=== PATIENT | female | born 1995 | race Caucasian/White ===

== ENCOUNTER 2020-05-31 13:37 | Inpatient (IN) ==
[~2020-05-31 13:37] MED LIST: *HR* FentaNYL (PF) 100 MCG/2 ML VIAL IVP PRN; Famotidine 20 MG/2 ML VIAL IVP PRN; Lidocaine 1% 20 ML MDV INFILT PRN; Metoclopramide 10 MG/2 ML VIAL IVP PRN; Naloxone 0.4 MG/ML INJ IVP PRN; Ondansetron 4 MG/2 ML VIAL IVP PRN
[2020-05-31] MEDS ORDERED: Ringers Solution, Lactated 1,000 ML IVC SCH (13:45)
[2020-05-31 14:06] LABS: Basophils % 0.2 %; Eosinophils # 0.1 K/mcL (0.0-0.6); Eosinophils % 0.5 %; Hematocrit 42.6 % (35.3-44.9); Hemoglobin 13.5 g/dL (11.5-15.4); Immature Granulocytes % 0.5 % (0-4); Lymphocytes # 1.6 K/mcL (0.6-4.6); Lymphocytes % 15.3 %; Mean Corpuscular HGB Conc 31.7 g/dL (31.6-35.5); Mean Corpuscular Hemoglobin 27.8 pg (28.0-33.3); Mean Corpuscular Volume 87.7 fL (83.0-100.0); Mean Platelet Volume 11.5 fL (9.4-12.4); Monocytes # 0.7 K/mcL (0.0-1.3); Monocytes % 6.6 %; Platelet Count 163 K/mcL (140-400); Red Blood Count 4.86 M/mcL (3.82-4.97); Red Cell Distribution Width 14.4 % (11.5-14.5); Segmented Neutrophils % 76.9 %; White Blood Count 10.3 K/mcL (4.3-11.1)
[2020-05-31 14:12] LABS: Amphetamine Screen,Urine Negative ng/mL (Cutoff=1000); Barbiturate Screen,Urine Negative ng/mL (Cutoff=200); Benzodiazepines Screen,Urine Negative ng/mL (Cutoff=200); Cannabinoid Screen,Urine Negative ng/mL (Cutoff = 50); Cocaine Screen,Urine Negative ng/mL (Cutoff= 300); Opiate Screen,Urine Negative ng/mL (Cutoff=300); Phencyclidine Screen,Urine Negative ng/mL (Cutoff=25)
[2020-05-31] MEDS ORDERED: Oxytocin 20 units/ LR 1000 mL 20 UNIT/1,000 ML BAG IVC SCH (14:15)
[2020-05-31] MEDS ORDERED: miSOPROStoL 25 MCG TABLET PO PRN (17:19)
[2020-05-31] MEDS ORDERED: EPHEDrine 50 MG/ML VIAL IVP PRN (20:39)
[2020-05-31] MEDS ORDERED: Bupivacaine-MPF 0.25% 10 ML VIAL EP ONE (20:39)
[2020-05-31] MEDS ORDERED: *HR* FentaNYL (PF) 100 MCG/2 ML VIAL EP ONE (20:39)
[2020-05-31] MEDS ORDERED: Epidural Premix (fent/bupiv) 110 ML EP SCH (20:45)
[2020-05-31] MEDS ORDERED: Epidural Premix (fent/bupiv) 110 ML EP ONE (20:46)
[2020-06-01] MEDS ORDERED: Acetaminophen 325 MG TABLET PO ONE (03:57)
[2020-06-01] MEDS ORDERED: Ibuprofen 600 MG TABLET PO PRN (06:30)
[2020-06-01] MEDS ORDERED: Acetaminophen 325 MG TABLET PO PRN (06:36)
[2020-06-01] MEDS ORDERED: Measles/Mumps/Rubella Vacc 0.5 ML VIAL SQ PRN (06:36)
[2020-06-01] MEDS ORDERED: Rho Immune Globulin 1,500 UNIT SYRINGE IM PRN (06:36)
[2020-06-01] MEDS ORDERED: Oxytocin 20 units/ LR 1000 mL 20 UNIT/1,000 ML BAG IVC ONE (06:37)
[2020-06-01] MEDS ORDERED: Oxytocin 20 units/ LR 1000 mL 20 UNIT/1,000 ML BAG IVC SCH (06:45)
[2020-06-01] MEDS: Ibuprofen 600 MG TABLET PO PRN ×2 (07:22→17:46)
[2020-06-01] MEDS: Prenatal Vit/FA 1 EACH TABLET PO SCH (08:21)
[2020-06-01] MEDS ORDERED: Benzocaine/Menthol 56 GM AEROSOL SPRAY TP PRN (19:43)
[2020-06-02] MEDS: Ibuprofen 600 MG TABLET PO PRN ×2 (01:43→08:20)
[2020-06-02 07:59] VITALS: BP 117/68
[2020-06-02] MEDS: Prenatal Vit/FA 1 EACH TABLET PO SCH (08:20)
== END 2020-06-02 11:46 | disposition home or self-care (01) | DRG 807 ==
LOC: 1NENULAB → 1NENUOBS 06-01 08:28 → UNDODISIN 06-01 14:10
PROVIDERS: ADMIT Student in an Organized Health Care Education/Training Program; ATTEND Student in an Organized Health Care Education/Training Program

== ENCOUNTER → 2021-04-18 00:12 | Observation (INO) | END | disposition home or self-care (01) | LOC: 1NENULAB | PROVIDERS: ADMIT Student in an Organized Health Care Education/Training Program; ATTEND Student in an Organized Health Care Education/Training Program ==

== ENCOUNTER → 2021-04-25 11:25 | Observation (INO) | END | disposition home or self-care (01) | LOC: 1NENULAB | PROVIDERS: ADMIT Obstetrics & Gynecology; ATTEND Obstetrics & Gynecology ==

== ENCOUNTER 2021-04-30 07:49 | Inpatient (IN) ==
[2021-04-30] MEDS ORDERED: Metoclopramide 10 MG/2 ML VIAL IVP PRN ×2 (08:13→14:13)
[2021-04-30] MEDS ORDERED: Azithromycin 500 MG in 0.9 % Sodium Chloride 250 ML IVPB PRN (08:13)
[2021-04-30] MEDS ORDERED: Famotidine 20 MG/2 ML VIAL IVP PRN (08:13)
[2021-04-30] MEDS ORDERED: Naloxone 0.4 MG/ML INJ IVP PRN ×3 (08:13→14:13)
[2021-04-30] MEDS ORDERED: Ringers Solution, Lactated 1,000 ML IVC SCH (08:15)
[2021-04-30] MEDS ORDERED: EPHEDrine 50 MG/ML VIAL IVP PRN (08:38)
[2021-04-30] MEDS ORDERED: Ondansetron 4 MG/2 ML VIAL IVP PRN ×2 (08:38→14:13)
[2021-04-30] MEDS ORDERED: Ropivacaine/PF 0.2% 20 ML VIAL EP ONE (08:38)
[2021-04-30] MEDS ORDERED: *HR* FentaNYL (PF) 100 MCG/2 ML VIAL EP ONE (08:38)
[2021-04-30] MEDS ORDERED: Epidural Premix (fent/bupiv) 110 ML EP SCH (08:45)
[2021-04-30 08:50] LABS: Basophils % 0.1 %; Eosinophils % 0.4 %; Hematocrit 39.5 % (35.3-44.9); Hemoglobin 12.7 g/dL (11.5-15.4); Immature Granulocytes % 0.4 % (0-4); Lymphocytes # 1.3 K/mcL (0.6-4.6); Lymphocytes % 18.4 %; Mean Corpuscular HGB Conc 32.2 g/dL (31.6-35.5); Mean Corpuscular Hemoglobin 27.8 pg (28.0-33.3); Mean Corpuscular Volume 86.4 fL (83.0-100.0); Mean Platelet Volume 11.5 fL (9.4-12.4); Monocytes # 0.4 K/mcL (0.0-1.3); Neutrophils # 5.4 K/mcL (1.6-8.9); Platelet Count 163 K/mcL (140-400); Red Blood Count 4.57 M/mcL (3.82-4.97); Red Cell Distribution Width 13.9 % (11.5-14.5); Segmented Neutrophils % 74.7 %; White Blood Count 7.3 K/mcL (4.3-11.1)
[2021-04-30] MEDS ORDERED: Ringers Solution, Lactated 1,000 ML IVC ONE (09:06)
[2021-04-30] MEDS ORDERED: Famotidine 20 MG/2 ML VIAL IVP ONE (09:06)
[2021-04-30] MEDS ORDERED: CeFAZolin 2,000MG/50ML DUPLEX 2,000 MG/50 ML BAG IVPB ONE (09:06)
[2021-04-30] MEDS ORDERED: Metoclopramide 10 MG/2 ML VIAL IVP ONE (09:06)
[2021-04-30] MEDS ORDERED: Bupivacaine/PF 0.75% in Dex 2 ML AMPUL INFILT ONE (09:10)
[2021-04-30] MEDS ORDERED: 0.9 % Sodium Chloride 1,000 ML IVC SCH ×2 (09:15→14:13)
[2021-04-30] MEDS ORDERED: EPHEDrine 50 MG/ML VIAL ONE (10:23)
[2021-04-30] MEDS ORDERED: Ondansetron 4 MG/2 ML VIAL ONE (10:24)
[2021-04-30 10:29] LABS: Amphetamine Screen,Urine Negative ng/mL (Cutoff=1000); Barbiturate Screen,Urine Negative ng/mL (Cutoff=200); Benzodiazepines Screen,Urine Negative ng/mL (Cutoff=200); Cannabinoid Screen,Urine Negative ng/mL (Cutoff = 50); Cocaine Screen,Urine Negative ng/mL (Cutoff= 300); Opiate Screen,Urine Negative ng/mL (Cutoff=300); Phencyclidine Screen,Urine Negative ng/mL (Cutoff=25)
[2021-04-30] MEDS ORDERED: Acetaminophen IV 1,000 MG/100 ML BAG IVPB ONE (10:40)
[2021-04-30] MEDS ORDERED: Ringers Solution, Lactated 0 ML ONE (10:41)
[2021-04-30] MEDS ORDERED: *HR* Oxytocin 10 UNIT/ML VIAL IM ONE (10:42)
[2021-04-30] MEDS ORDERED: Oxytocin 20 units/ LR 1000 mL 40 UNIT/2,000 ML BAG IVC ONE (10:44)
[2021-04-30] MEDS ORDERED: *HR* Morphine Sulfate/PF 10 MG/10 ML AMPUL ONE (10:53)
[2021-04-30] MEDS ORDERED: Ketorolac 30 MG/ML VIAL ONE (11:31)
[2021-04-30] MEDS ORDERED: *HR* OxyCODONE Immed Rel 5 MG TABLET PO PRN (14:13)
[2021-04-30] MEDS ORDERED: Oxytocin 20 units/ LR 1000 mL 20 UNIT/1,000 ML BAG IVC SCH (14:13)
[2021-04-30] MEDS: Ibuprofen 600 MG TABLET PO SCH (15:05)
[2021-04-30] MEDS: Acetaminophen 325 MG TABLET PO SCH (15:06)
[2021-05-01] MEDS: Ibuprofen 600 MG TABLET PO SCH ×5 (00:02→18:03)
[2021-05-01] MEDS: Acetaminophen 325 MG TABLET PO SCH ×5 (00:03→18:04)
[2021-05-01 07:15] LABS: Basophils % 0.2 %; Eosinophils # 0.1 K/mcL (0.0-0.6); Eosinophils % 0.5 %; Hematocrit 36.8 % (35.3-44.9); Hemoglobin 11.5 g/dL (11.5-15.4); Immature Granulocytes % 0.3 % (0-4); Lymphocytes # 1.3 K/mcL (0.6-4.6); Lymphocytes % 14.1 %; Mean Corpuscular HGB Conc 31.3 g/dL (31.6-35.5); Mean Corpuscular Hemoglobin 27.7 pg (28.0-33.3); Mean Corpuscular Volume 88.7 fL (83.0-100.0); Mean Platelet Volume 11.9 fL (9.4-12.4); Monocytes # 0.8 K/mcL (0.0-1.3); Monocytes % 8.5 %; Platelet Count 145 K/mcL (140-400); Red Blood Count 4.15 M/mcL (3.82-4.97); Red Cell Distribution Width 13.8 % (11.5-14.5); Segmented Neutrophils % 76.4 %; White Blood Count 9.2 K/mcL (4.3-11.1)
[2021-05-01] MEDS: Prenatal Vit/FA 1 EACH TABLET PO SCH (08:47)
[2021-05-01] MEDS: Simethicone 80 MG TAB.CHEW PO PRN ×2 (08:49→18:00)
[2021-05-01 22:18] VITALS: O2SAT 95
[2021-05-02] MEDS: Ibuprofen 600 MG TABLET PO SCH ×2 (00:06→06:04)
[2021-05-02] MEDS: Acetaminophen 325 MG TABLET PO SCH ×2 (00:06→06:04)
[2021-05-02 07:44] VITALS: BP 136/82; PULSE 83; TEMP 97.6
[2021-05-02] MEDS: Prenatal Vit/FA 1 EACH TABLET PO SCH (08:00)
== END 2021-05-02 11:27 | disposition home or self-care (01) | DRG 788 ==
LOC: 1NENULAB 07:49 → 1NENUOBS 14:25
PROVIDERS: ADMIT Student in an Organized Health Care Education/Training Program; ATTEND Student in an Organized Health Care Education/Training Program